=== PATIENT | female | born 1950 ===

== ENCOUNTER 2019-02-05 16:50 | Inpatient (IN) | payer OTHER ==
[2019-02-05] MEDS ORDERED: MORPHINE 4 MG/ML SYR ONE (18:03)
[2019-02-05] MEDS ORDERED: ONDANSETRON 4 MG/2 ML VIAL ONE (18:03)
--- NOTE | 2019-02-05 18:14 | EDPHYS ---
Physician Documentation [facility] Name: Virginia Savage Age: 68 yrs Sex: Female : 1950 Arrival Date: 02/05/2019 Time: 16:58 Bed 14 Private MD: ED Physician Jackson Lainez HPI: 02/05 17:56 This 68 yrs old Unknown Female presents to ER via EMS with complaints of Wound Check. ps1 17:56 patient presenting with dry gangrene to left foot with multiple toes affected and cold ps1 foot without pulses. Hx of PVD and was treated for gangrene with vancomycin recently. 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 Not systemic. No fever, chills. Pain in lower foot but now loss of sensation. . Historical: - Allergies: 16:58 Codeine; aa5 16:58 metformin; aa5 16:58 Sulfa (Sulfonamide Antibiotics); aa5 16:58 PENICILLINS; aa5 16:58 SHELLFISH; aa5 - Home Meds: 17:31 Arginaid oral oral [Active]; atorvastatin 80 mg oral tab once daily [Active]; aa5 fluticasone 50mcg nasal [Active]; ipratropium-albuterol inhalation Inhl [Active]; loperamide 2 mg oral tab 2 tabs for Diarrhea [Active]; Megace 400 mg/10 mL (40 mg/mL) Oral susp 10 mL BID [Active]; metoprolol tartrate 25 mg Oral tab 2 times per day [Active]; naproxen 250 mg Oral tab 1 tab 2 times per day [Active]; Norvasc 10 mg Oral tab 1 tab once daily [Active]; pantoprazole 40 mg oral TbEC once daily [Active]; potassium chloride 20 mEq oral TbER 2 tab once daily [Active]; Questran 4 gram Oral powd 3 times a day [Active]; Remeron 30 mg Oral tab once daily [Active]; tamsulosin 0.4 mg oral cp24 1 cap once daily [Active]; tramadol 50 mg Oral tab every 6 hours [Active]; vancomycin 250 mg oral cap every 6 hours [Active]; venlafaxine 75 mg oral cp24 1 cap BID [Active]; Zinc Sulfate Oral [Active]; - PMHx: 17:18 CVA; Hyperlipidemia; Diabetes Type 2; COPD; PVD; Depression; Retention of urine with aa5 davila placement; - Immunization history:: Flu vaccine is up to date. - Social history:: Smoking status: Patient uses tobacco products, 8 cigarettes a day . - Ebola Screening: : No symptoms or risks identified at this time. ROS: 17:56 Constitutional: Negative for fever, chills, and weight loss, Eyes: Negative for injury, ps1 pain, redness, and discharge, Cardiovascular: Negative for chest pain, palpitations, and edema, Respiratory: Negative for shortness of breath, cough, wheezing, and pleuritic chest pain, Abdomen/GI: Negative for abdominal pain, nausea, vomiting, diarrhea, and constipation. 17:56 MS/extremity: Positive for pain, paresthesias, tingling, of the left first toe, left second toe, left third toe, left fourth toe, Left first toenail, Left second toenail and Left third toenail, pulseless and cold. Exam: 17:56 Constitutional: This is a well developed, well nourished patient who is awake, alert, ps1 and in no acute distress. Head/Face: Normocephalic, atraumatic. Eyes: Pupils equal round and reactive to light, extra-ocular motions intact. Lids and lashes normal. Conjunctiva and sclera are non-icteric and not injected. Chest/axilla: Normal chest wall appearance and motion. Nontender with no deformity. No lesions are appreciated. Cardiovascular: Regular rate and rhythm. No gallops, murmurs, or rubs. Normal PMI, no JVD. No pulse deficits. Respiratory: Lungs have equal breath sounds bilaterally, clear to auscultation and percussion. No rales, rhonchi or wheezes noted. No increased work of breathing, no retractions or nasal flaring. Abdomen/GI: Soft, non-tender, with normal bowel sounds. No distension or tympany. No guarding or rebound. No evidence of tenderness throughout. 17:56 Musculoskeletal/extremity: Extremities: right BKA. left foot has no pulses distally and no cap refill. Dry gangrene on distal aspects of toes with medial toes worse than lateral. Discoloration noted to the distal aspect of the foot extending proximally approximately 4cm. . Vital Signs: 16:59 BP 109 / 66; Pulse 93; Resp 18 S; Temp 98.2(O); Pulse Ox 100% on R/A; Pain 10/10; aa5 18:00 BP 134 / 73; Pulse 92; Resp 16 S; Pulse Ox 100% on R/A; aa5 19:10 BP 128 / 67; Pulse 109; Resp 20; Temp 97.9(O); Pulse Ox 99% on 2 lpm NC; Pain 10/10; lp1 20:00 BP 140 / 67; Pulse 118; Resp 19; Pulse Ox 100% on 2 lpm NC; lp1 21:30 BP 134 / 70; Pulse 115; Resp 20; Pulse Ox 99% on 2 lpm NC; lp1 MDM: 17:43 Patient medically screened. ps1 17:56 Data reviewed: vital signs, nurses notes, and as a result, I will admit patient. ps1 Counseling: I had a detailed discussion with the patient and/or guardian regarding: the historical points, exam findings, and any diagnostic results supporting the discharge/admit diagnosis, the presence of at least one elevated blood pressure reading (>120/80) during this emergency department visit. ED course: patient has a cold foot with dry gangrene and lack of pulses. Patient requested amputation. Discussed with Jere who agrees to perform surgery. Will admit to hospitalist. . 18:38 ED course: Spoke with Dr. Taylor and would have Dr. Kenny take patient for admission. ps1 Transfer of care. 1756. 02/05 17:44 Order name: CBC with Diff [facility] 02/05 18:35 Interpretation: Abnormal: WBC 20.0; HGB 9.4; PEARL% 78.3. [facility] 02/05 17:44 Order name: CMP; Complete Time: 18:30 ps1 02/05 18:35 Interpretation: Abnormal: NA 135; CRE 1.51; GFR 34; BUN 25. [facility] 02/05 17:44 Order name: Type And Screen [facility] 02/05 18:20 Order name: Urine Microscopic Only; Complete Time: 18:44 ss 02/05 18:20 Order name: Urine Culture 02/05 18:30 Order name: Urine Dipstick--Ancillary (enter results); Complete Time: 18:44 bd 02/05 17:44 Order name: Urine Dipstick-Ancillary (obtain specimen); Complete Time: 18:50 ps1 02/05 17:44 Order name: EKG - Nurse/Tech; Complete Time: 18:36 ps1 02/05 19:18 Order name: ABO/RH no charge EDMO 02/05 19:51 Order name: CBC Smear Scan EDMS EC:18 Rate is 93 beats/min. Rhythm is regular. QRS [place] is Normal. SD interval is normal. QRS ps1 interval is normal. QT interval is normal. Q waves are Old in leads V2, V3. T waves are Normal. No ST changes noted. Clinical impression: Anterior MS - age indeterminate. Administered Medications: 18:12 Drug: morphine 4 mg Route: IVP; Site: right forearm; aa5 18:30 Follow up: Response: No adverse reaction aa5 18:12 Drug: Zofran 4 mg Route: IVP; Site: right forearm; aa5 18:30 Follow up: Response: No adverse reaction aa5 20:15 Drug: Dilaudid 1 mg Route: IVP; Site: right forearm; lp1 21:00 Follow up: Response: No adverse reaction; No change in condition lp1 Disposition: 02/05/19 18:14 Hospitalization ordered by Felicita Patel for Inpatient Admission. Preliminary diagnosis are Acute ischemic foot (left), dry gangrene, peripheral vascular disease. - Bed requested for Telemetry/MedSurg (Inpatient). - Status is Inpatient Admission. lp1 - Condition is Stable. - Problem is an ongoing problem. - Symptoms have worsened. UTI on Admission? No Signatures: Dispatcher [employer] [facility] Jenn Knutson RN RN aa5 Ana Edward RN RN lp1 Delroy Carmichael RN RN ja1 Jackson Lainez MD MD ps1 Corrections: (The following items were deleted from the chart) 20:09 18:14 Hospitalization Ordered by Felicita Patel MD for Inpatient Admission. Preliminary [facility] diagnosis is Acute ischemic foot (left); dry gangrene; peripheral vascular disease. Bed requested for Telemetry/MedSurg (Inpatient). Status is Inpatient Admission. Condition is Stable. Problem is an ongoing problem. Symptoms have worsened. UTI on Admission? No. ps1 22:15 20:09 02/05/2019 18:14 Hospitalization Ordered by Felicita Patel MD for Inpatient lp1 Admission. Preliminary diagnosis is Acute ischemic foot (left); dry gangrene; peripheral vascular disease. Bed requested for Telemetry/MedSurg (Inpatient). Status is Inpatient Admission. Condition is Stable. Problem is an ongoing problem. Symptoms have worsened. UTI on Admission? No. ja1
--- NOTE | 2019-02-05 18:14 | ER ---
Nurse's Notes [facility] Name: Virginia Savage Age: 68 yrs Sex: Female : 1950 Arrival Date: 02/05/2019 Time: 16:58 Bed 14 Private MD: Diagnosis: Acute ischemic foot (left);dry gangrene;peripheral vascular disease Presentation: 02/05 16:58 Risk Assessment: Do you want to hurt yourself or someone else? Patient reports no aa5 desire to harm self or others. Care prior to arrival: None. 16:58 Presenting complaint: EMS states: sent here for wound check to left foot. Unable to aa5 palpate pulse to left foot and unable auscultate via Doppler. Left foot cool to the touch. Transition of care: patient was not received from another setting of care. Onset of symptoms was February 05, 2019. Initial Sepsis Screen: Does the patient meet any 2 criteria? No. Patient's initial sepsis screen is negative. Does the patient have a suspected source of infection? No. Patient's initial sepsis screen is negative. 16:58 Acuity: SVEN 2 aa5 16:58 Method Of Arrival: EMS: [facility] aa5 Historical: - Allergies: 16:58 Codeine; aa5 16:58 metformin; aa5 16:58 Sulfa (Sulfonamide Antibiotics); aa5 16:58 PENICILLINS; aa5 16:58 SHELLFISH; aa5 - Home Meds: 17:31 Arginaid oral oral [Active]; atorvastatin 80 mg oral tab once daily [Active]; aa5 fluticasone 50mcg nasal [Active]; ipratropium-albuterol inhalation Inhl [Active]; loperamide 2 mg oral tab 2 tabs for Diarrhea [Active]; Megace 400 mg/10 mL (40 mg/mL) Oral susp 10 mL BID [Active]; metoprolol tartrate 25 mg Oral tab 2 times per day [Active]; naproxen 250 mg Oral tab 1 tab 2 times per day [Active]; Norvasc 10 mg Oral tab 1 tab once daily [Active]; pantoprazole 40 mg oral TbEC once daily [Active]; potassium chloride 20 mEq oral TbER 2 tab once daily [Active]; Questran 4 gram Oral powd 3 times a day [Active]; Remeron 30 mg Oral tab once daily [Active]; tamsulosin 0.4 mg oral cp24 1 cap once daily [Active]; tramadol 50 mg Oral tab every 6 hours [Active]; vancomycin 250 mg oral cap every 6 hours [Active]; venlafaxine 75 mg oral cp24 1 cap BID [Active]; Zinc Sulfate Oral [Active]; - PMHx: 17:18 CVA; Hyperlipidemia; Diabetes Type 2; COPD; PVD; Depression; Retention of urine with aa5 davila placement; - Immunization history:: Flu vaccine is up to date. - Social history:: Smoking status: Patient uses tobacco products, 8 cigarettes a day . - Ebola Screening: : No symptoms or risks identified at this time. Screenin:15 Abuse screen: Denies threats or abuse. Nutritional screening: No deficits noted. aa5 Tuberculosis screening: No symptoms or risk factors identified. Fall Risk Secondary diagnosis (15 points) impaired mobility, IV access (20 points). Total Bauer Fall Scale indicates Low Risk Score (25-44 pts). Fall prevention measures have been instituted. Side Rails Up X 2 Placed close to Nursing Station. Assessment: 17:00 General: Appears uncomfortable, Behavior is calm, cooperative. Pain: Complains of pain aa5 in left calf and left foot Pain does not radiate. Pain currently is 10 out of 10 on a pain scale. Quality of pain is described as sharp, shooting, Is intermittent, Aggravated by increased activity, repositioning. Neuro: Level of Consciousness is awake, alert, obeys commands, Oriented to person, place, time, situation. Cardiovascular: Heart tones S1 S2 present Rhythm is regular. Respiratory: Airway is patent Respiratory effort is even, unlabored, Respiratory pattern is regular, symmetrical. GI: Abdomen is flat, non-distended, Bowel sounds present X 4 quads. Abd is soft and non tender X 4 quads. : Brief noted. EENT: No signs and/or symptoms were reported regarding the EENT system. Derm: Skin is pink, warm \T\ dry. Necrotic tissue noted to tip of left great toe, tip of 2nd,toe and tip of of 3rd toe. Left foot is cool to the touch and unable to palpate or auscultate pedal pulse. Musculoskeletal: R AKA noted. 17:45 Reassessment: Clean brief applied. Small soft brown stool noted. . aa5 18:15 Reassessment: Patient is alert, oriented x 3, equal unlabored respirations, skin aa5 warm/dry/pink. Pt appears comfortable after morphine administration. . 18:35 Reassessment: Left foot redressed with Kerlix, pt tolerated well. . aa5 18:35 Reassessment: Patient is alert, oriented x 3, equal unlabored respirations, skin aa5 warm/dry/pink. 19:15 Reassessment: Patient complaint of pain to left thigh, states 10/10 on pain scale; lp1 requesting to have brief change; aware of pending admission. 20:01 Reassessment: Hospitalist at bedside to assess patient; Verbal order for Dilaudid 1 mg lp1 IV at this time. 20:10 Reassessment: Dr. Oquendo at bedside. lp1 20:20 Reassessment: Attempted to give report at this time, nurse unable to take report. lp1 21:10 Reassessment: Attempted to call report, nurse not available. lp1 21:36 Reassessment: Patient states continued pain to left hip, no relief with medication lp1 administered. 21:50 Reassessment: Patient's brief changed at this time, small amount of stool, mucus like. lp1 Vital Signs: 16:59 BP 109 / 66; Pulse 93; Resp 18 S; Temp 98.2(O); Pulse Ox 100% on R/A; Pain 10/10; aa5 18:00 BP 134 / 73; Pulse 92; Resp 16 S; Pulse Ox 100% on R/A; aa5 19:10 BP 128 / 67; Pulse 109; Resp 20; Temp 97.9(O); Pulse Ox 99% on 2 lpm NC; Pain 10/10; lp1 20:00 BP 140 / 67; Pulse 118; Resp 19; Pulse Ox 100% on 2 lpm NC; lp1 21:30 BP 134 / 70; Pulse 115; Resp 20; Pulse Ox 99% on 2 lpm NC; lp1 ED Course: 16:58 Patient arrived in ED. aa5 16:58 Arm band placed on Patient placed in an exam room, on a stretcher. aa5 16:58 Patient has correct armband on for positive identification. Bed in low position. Call aa5 light in reach. Side rails up X2. Pulse ox on. NIBP on. 17:10 Triage completed. aa5 17:16 Jackson Lainez MD is Attending Physician. ps1 17:22 Jenn Knutson, RN is Primary Nurse. aa5 17:52 Initial lab(s) drawn, by nm, sent to lab. Inserted saline lock: 24 gauge in right aa5 forearm, using aseptic technique. Blood collected. 18:13 Felicita Patel MD is Hospitalizing Provider. ps1 18:35 EKG done, by ED staff, reviewed by Jackson Lainez MD. dh3 19:00 Report given to Ana Edward RN. aa5 19:22 No provider procedures requiring assistance completed. Patient admitted, IV remains in lp1 place. Administered Medications: 18:12 Drug: morphine 4 mg Route: IVP; Site: right forearm; aa5 18:30 Follow up: Response: No adverse reaction aa5 18:12 Drug: Zofran 4 mg Route: IVP; Site: right forearm; aa5 18:30 Follow up: Response: No adverse reaction aa5 20:15 Drug: Dilaudid 1 mg Route: IVP; Site: right forearm; lp1 21:00 Follow up: Response: No adverse reaction; No change in condition lp1 Outcome: 18:14 Decision to Hospitalize by Provider. ps1 19:22 Condition: stable lp1 19:22 Instructed on the need for admit. 21:41 Admitted to Tele accompanied by tech, via stretcher, room 416, with oxygen, with chart, lp1 Report called to VASQUEZ Romero 21:50 Patient left the ED. lp1 Signatures: Jenn Knutson RN RN 5 Ana Edward RN RN 1 Josselyn Bedolla [facility] Jackson Lainez MD MD ps1 Corrections: (The following items were deleted from the chart) 20:01 19:10 BP 128 / 67; Pulse 109bpm; Resp 20bpm; Pulse Ox 99% 2 lpm Nasal Cannula; Pain lp1 10/10; lp1 22:15 22:15 Patient left the ED. lp1 lp1
[2019-02-05 18:16] LABS: Absolute Lymphocytes (CBC) 3.2 K/uL (0.7-4.9); Basophils % 0.5 % (0-1.3); Hematocrit 28.6 % (36.0-45.0); Lymphocytes % 15.8 % (15.3-44.8); MPV 6.9 fL (7.6-11.3); RBC Red Blood Cell Count 3.49 M/uL (3.86-4.86)
[2019-02-05 18:26] LABS: Albumin 2.5 g/dL (3.4-5.0); Bilirubin Total 0.4 mg/dL (0.2-1.0); Potassium 4.5 mmol/L (3.5-5.1); Protein, Total 6.8 g/dL (6.4-8.2)
[2019-02-05 18:39] LABS: Urine Bacteria >50 /HPF (<20); Urine Culture Reflex Order NOT NEEDED; Urine Mucus 2+ /HPF (NONE SEEN)
[2019-02-05 18:39] LABS: Urine Blood 1+ (NEG); Urine Glucose NEGATIVE (NEG); Urine Protein 1+ (NEG); Urine pH 5.5 (5.0-7.0)
[2019-02-05 19:50] LABS: Platelet Estimate INCR; Urine White Blood Cell Casts OK
[2019-02-05 19:51] LABS: Anisocytosis 1+; Blood Morphology Comment NOTED (NOT SEEN); Poikilocytosis 2+
[2019-02-05] MEDS ORDERED: HYDROMORPHONE HCL 1 MG/ML INJ ONE (20:06)
--- NOTE | 2019-02-05 20:43 | P.PN ---
Date of Service: 02/05/19 pt with dm , pvd , right bka , adm for left foot toe gangrene , hx of acute diarrhea started on vancoc , pending c diff . will start ivf , abx , consult surgery for possible amputation , stool for c diff now
[2019-02-05] MEDS ORDERED: NA CHLORIDE 0.9% 1,000 ML IV SCH (21:00)
[2019-02-05] MEDS ORDERED: ALBUTEROL 2.5 MG/3 ML NEB SOL NEB PRN (21:09)
[2019-02-05] MEDS ORDERED: ACETAMINOPHEN 500 MG TAB PO PRN (22:22)
[2019-02-05] MEDS ORDERED: ACETAMINOPHEN 325 MG TABLET PO PRN (22:22)
[2019-02-05] MEDS ORDERED: MORPHINE 2 MG/ML SYR IV PRN (22:22)
[2019-02-05] MEDS ORDERED: TRAMADOL HCL 50 MG TAB PO PRN (22:22)
[2019-02-05] MEDS ORDERED: ONDANSETRON 4 MG/2 ML VIAL IV PRN (22:22)
[2019-02-05] MEDS ORDERED: HYDROCODONE/APAP 7.5/325 MG TAB PO PRN (22:22)
[2019-02-05] MEDS: INSULIN -REGULAR HUMAN 50 UNIT/0.5 ML ML SQ SCH (22:22)
[2019-02-05] MEDS ORDERED: VANCOMYCIN 750 MG in NA CHLORIDE 0.9% 150 ML IVPB SCH (23:00)
[2019-02-05] MEDS ORDERED: CEFEPIME 1 GM/VIAL IV SCH (23:00)
[2019-02-05] MEDS: SODIUM BICARB 325 MG TAB PO SCH (23:11)
[2019-02-05] MEDS: HYDROMORPHONE HCL 2 MG/ML inj IV PRN (23:12)
[2019-02-06] MEDS ORDERED: VANCOMYCIN 500 MG/VIAL ONE (00:11)
[2019-02-06] MEDS ORDERED: CEFEPIME 1 GM/100 ML BAG IV ONE (00:16)
[2019-02-06] MEDS ORDERED: NA CHLORIDE 0.9% 250 ML ONE (00:35)
[2019-02-06] MEDS: HEPARIN 5000 UNIT/ML 1 ML VIAL SQ SCH ×3 (00:55→18:33)
[2019-02-06] MEDS ORDERED: NAPROXEN 250 MG TAB PO PRN (01:48)
--- NOTE | 2019-02-06 04:29 | HP ---
Date of Admission: 02/05/2019 Presenting Complaint: Left foot pain. History Of Present Illness: Ms. Virginia Savage is a 68-year-old female with past medical hi story of hypertension; depression; dementia; COPD; diabetes mellitus with neuropathy, status post rig ht BKA 10 months ago; [facility] resident since the last 10 months, who developed gangrene with ___ on the left foot digits, especially the great toe and next 2 toes since the last 1 month, whi ch has been worsening despite daily dressing. She was transferred to the emergency room today for fu rther evaluation and management. She has not been started on any antibiotics. She admits to persist ent pain. She rates pain is about 8/10 now. Pain is more in the left upper thigh. She denies pain in the foot area. She admits to decrease p.o. intake despite have megace. She admitted for diarrhea with p.o. intake worsening since the last 1 week. She had stool for C diff since 2 days ago and emp irically started on vancomycin yesterday. She denies any nausea or vomiting. Past Medical History: Significant for hypertension, hyperlipidemia, diabetes mellitus, peripheral ne uropathy, right BKA, peripheral vascular disease, history of memory issues, history of COPD, history of urine retention, on chronic indwelling Martinez. Family History: Noncontributory in this 68-year-old female. Social History: [facility] a [facility]. She admitted tobacco use. She smokes about 8 cigare ttes per day. She denies any alcohol or illicit drug use. She states her son has a power of attorne y and make decisions for her. Review of Systems: All systems reviewed x14 were negative except as mentioned above. Allergies: NO KNOWN DRUG ALLERGIES. Medications: Home medications were reviewed include: 1.Lipitor. 2.Megace. 3.Nebulizer. 4.Metoprolol 25 mg b.i.d. Full list pending reconciliation. Physical Examination: Current Vital Signs: Blood pressure of 116/76, pulse of 90 to 102, respiratory rate of 20, O2 satura tions of 95% on 2 L nasal cannula. General: Middle age female, appear older than stated age, in mild pain distress, cachectic with sign ificant muscle wasting. HEENT: Head is atraumatic, normocephalic. Pupils equal and reactive to light. Moist oral mucosa. Neck: No JVD. No carotid bruit. On 2 L nasal cannula. Respiratory: Good air entry bilaterally. There is no crepitation. Cardiovascular: S1, S2. Rate and rhythm regular. Abdomen: Full, soft, nontender. Bowel sound is positive. Extremities: Right BKA. No stump edema. Left marked, wasted lower extremity muscles. e schar over the digits of the lateral 3 toes with marked excoriation extending to the distal end of th e left big toe. Neurologic: Patient is conversant. No neurological focal motor deficits . Laboratory Data: WBC 20,000, hemoglobin 9.4, hematocrit 28, platelets 169, neutrophils 78%, no bands . Sodium 135, potassium 4.5, bicarb 16, chloride 106, BUN 25, creatinine 1.5, glucose 94. Impression: 1.Left foot toe gangrene. 2.Chronic diarrhea, presumed Clostridium difficile. 3.Diabetes mellitus. 4.Weakness, likely due to decrease p.o. intake. 5.History of chronic obstructive pulmonary disease. 6.Acute renal failure. Plan: We will admit patient to inpatient status. We will manage the patient for the followin.Left foot gangrene. We will consult Surgery for possible toe amputations. Patient might need angie t given history of peripheral vascular disease and diabetic neuropathy. We will start patient on emp iric antibiotics with vancomycin and cefepime with do adequate pain medication with p.r.n. Dilaudid. We will start on IV fluid. 2.Acute renal failure, likely due to prerenal. We will start patient on gentle IV fluid. Monitor v ancomycin trough and adjust as needed. 3.Presumed C diff. We will start isolation protocol. Obtain stool for C diff. May need p.o. vanco mycin and flagyl. Continue IV vancomycin for now. 4.Hypertension. We continue lopressor q.12 as needed, IV hydralazine p.r.n. 5.Deep vein thrombosis prophylaxis. Subcutaneous heparin. 6.Advanced directive. Patient is DNR per [facility] record. Patient confirmed after discussion. Total time spent review of record, discussed with patient greater than 60 minutes. EO/MODL Voice ID: [id number]
--- NOTE | 2019-02-06 05:30 | EKG ---
Test Date: 2019-02-05 Test Time: 18:18:19 Food Service Cashier: LUCIAN MEASUREMENT RESULTS: Intervals: Rate: 93 MI: 120 QRSD: 70 QT: 392 QTc: 487 Sharon: P: 81 MI: 120 QRS: -24 T: 85 INTERPRETIVE STATEMENTS: Sinus rhythm with premature ventricular complexes or fusion complexes Anteroseptal infarct, age undetermined Abnormal ECG No previous ECG available for comparison Electronically Signed On 02-06-19 05:29:42 [employer]LECTION WORKER by Yonis Lee
[2019-02-06 06:09] LABS: Absolute Lymphocytes (CBC) 2.7 K/uL (0.7-4.9); Basophils % 0.4 % (0-1.3); Hematocrit 26.6 % (36.0-45.0); Lymphocytes % 10.7 % (15.3-44.8); MPV 7.1 fL (7.6-11.3); RBC Red Blood Cell Count 3.23 M/uL (3.86-4.86)
[2019-02-06 06:34] LABS: Magnesium 1.5 mg/dL (1.8-2.4); Potassium 4.2 mmol/L (3.5-5.1)
[2019-02-06] MEDS ORDERED: WATER FOR INJ,STERILE 1,000 ML with NA BICARB 8.4% 100 MEQ IV SCH ×2 (07:00)
[2019-02-06] MEDS: INSULIN -REGULAR HUMAN 50 UNIT/0.5 ML ML SQ SCH ×4 (07:30→21:00)
[2019-02-06] MEDS ORDERED: Magnesium Sulfate 2gm IVPB 2 G/50 ML BAG IV ONE ×2 (07:55→14:40)
[2019-02-06] MEDS: METOPROLOL TAR 25 MG TAB PO SCH ×2 (09:00→20:43)
[2019-02-06] MEDS ORDERED: VANCOMYCIN 1 GM in NA CHLORIDE 0.9% 500 ML IVPB SCH (09:00)
[2019-02-06] MEDS: VENLAFAXINE HCL 75 MG TABLET PO SCH ×2 (09:00→20:43)
[2019-02-06] MEDS: SODIUM BICARB 325 MG TAB PO SCH ×2 (09:00→20:47)
[2019-02-06] MEDS: FLUTICASONE 50MCG NASAL SPRAY NAS SCH (09:26)
[2019-02-06 11:44] LABS: Uric Acid 9.7 mg/dL (2.6-6.0)
[2019-02-06 11:49] LABS: CKMB Creatine Kinase MB 41.7 ng/mL (0.3-3.6)
[2019-02-06] MEDS ORDERED: NA CHLORIDE 0.9% 500 ML IV ONE (12:53)
[2019-02-06] MEDS: WATER FOR INJ,STERILE 1,000 ML with NA BICARB 8.4% 150 MEQ IV SCH ×2 (13:00)
[2019-02-06] MEDS ORDERED: Meropenem 500 MG in NA CHLORIDE 0.9% 100 ML IV SCH (13:15)
[2019-02-06 14:52] LABS: Urine Protein/Creatinine Ratio 2.14 ratio (<0.15)
[2019-02-06] MEDS: Meropenem 500 MG in NA CHLORIDE 0.9% 100 ML IV SCH ×2 (15:00→21:45)
[2019-02-06] MEDS ORDERED: NA CHLORIDE 0.9% 1,000 ML IV SCH (15:00)
[2019-02-06 15:15] LABS: Arterial Blood Carboxyhemoglob 1.3 % (0-1.5); Blood Gas Oxyhemoglobin 95.8 % (94-97); Blood O2 Saturation 97.6 % (92-98.5)
[2019-02-06] MEDS: HYDROMORPHONE HCL 2 MG/ML inj IV PRN ×2 (16:24→20:47)
--- NOTE | 2019-02-06 16:52 | RAD REPORT ---
EXAM DESCRIPTION: US - Renal Ultrasound-Complete - 02/06/2019 3:50 pm CLINICAL HISTORY: Renal failure COMPARISON: None. FINDINGS: The right kidney measures 7.6 x 3.7 x 2.3 cm.. The left kidney measures 7.1 x 3.4 x 3.1 c m. Cortical thickness is normal. Echogenicity is increased which could be body habitus affect or medi star renal disease. No hydronephrosis or suspicious renal mass. Bladder is contracted around a Martinez catheter. IMPRESSION: Medical renal disease evident but no hydronephrosis or suspicious mass. No other significant findings.
[2019-02-06] MEDS ORDERED: PIPER/TAZO/NS 2.25gm 2.25 GM/50 ML BAG IVPB SCH (17:00)
--- NOTE | 2019-02-06 17:02 | P.CNS ---
Date of Consult: 02/06/19 PC: I was asked to see well as in regards to some gangrene of her toes on her left foot. HPC: Patient is a skilled nursing. Presented to the emergency room complaining of pain. Her toes and on black over the last few days. PMH: History of stroke, CVA, peripheral vascular disease PSHx: Previous right AKA SOC: Allergic to codeine, penicillin, sulfa SYS REVIEW: New skilled nursing, states that she has been having dimensions pain in her left leg. This pain is up in her thigh. Denies any urinary complaints, has been losing weight and she does not have much of an appetite O/E awake alert vitals were stable HEENT: Within normal limits Chest: Chest movement equal bilateral ABD: Soft LOCO: Murray of her extremities her left leg is cool to the tied to. I cannot palpable pain any distal pulses. She has dry gangrene of her 1st 2nd and 3rd toe IMPRESSION: I had min formed that this patient had gangrene ever toes, and may require amputation. However when I see her today she has minimal blood flow to that left leg. I fear pending limb loss. PLAN: Patient had been on the floor, now in ICU due to persistently high lactate levels. Would recommend transfer to a higher level of care for vascular consultation.
--- NOTE | 2019-02-06 17:56 | PN ---
Date of Progress Note: 02/06/2019 Subjective: Patient was seen and examined. Chart reviewed and case discussed with RN and Dr. Oquendo, as well as Dr. Griffith. Patient appears ill, not really complaining of any pain, however, did mention pain in her thigh to the surgeon. Patient appears older than stated age and no family members are present at the bedside. Code Status: DNR. Medications: List reviewed. Physical Examination: Vital Signs: Temperature 97.3, heart rate 114, blood pressure 144/85, respirations 18, O2 100% on 2 L via nasal cannula. General: Awake, alert, oriented x3. Some mild distress. Elderly female, appears older than stated age. Frail, cachectic. BMI 14.3. CV: S1, S2. Sinus tachycardia. Peripheral pulses weak on the left lower extremity. Respiratory: Moving air well bilaterally. No wheezing or stridor. Gastrointestinal: Abdomen is soft, nontender, nondistended. Positive bowel sounds. Extremities: No clubbing, cyanosis, or edema on the left lower extremity. Musculoskeletal: Right AKA. Skin: Patient has gangrene of the left first, second, third toe with dry gangrene. No foul smelling odor, cool to touch. Neurologic: Nonfocal. Laboratory Data: Sodium 136, potassium 4.2, chloride 107, CO2 of 11, BUN 23, creatinine 1.28, glucose 113, lactate 2.2. Repeat lactate is 1. Repeat lactate today is 1.2. Uric acid level is 9.7, calcium 7.9, magnesium 1.5. CK level is 2286, CK-MB 41.7. ABG is pending. WBC 25.4, H and H 8.5, 26.6, platelets 616, neutrophils 85%. Urine culture growing out gram-negative rods. Blood culture is pending. Assessment: A 68-year-old female with: 1. Left foot dry gangrene. Appreciate Dr. Oquendo's input. We will adjust IV antibiotics. Add meropenem. Patient is allergic to penicillin for gram- negative coverage. Patient will likely need amputation and her blood circulation is very poor as peripheral vascular disease likely need BKA or AKA. 2. Chronic diarrhea. Patient has Clostridium difficile, was not treatment at the nursing facility. We will continue treatment for now. 3. Acute cystitis with hematuria. We will continue with IV antibiotics. Cultures are growing out gram-negative rods. 4. Hypomagnesemia. We will replace and monitor. 5. Failure to thrive. BMI is 14.3. Patient will need dietary consultation. 6. Acute rhabdomyolysis, nontraumatic. CK level is 2200, likely due to her gangrene. 7. Acidosis. CO2 level is low. We will give bolus and then start on bicarb drip. 8. Acute kidney injury, likely due to dehydration and acidosis, improved. We will continue with IV fluids. 9. Essential hypertension. Continue with home medications. 10. Deep venous thrombosis prophylaxis with heparin. 11. Mixed hyperlipidemia. We will continue statin. 12. Diabetes mellitus type 2, non-insulin requiring. We will continue with sliding scale insulin. Monitor blood glucose levels. 13. Chronic obstructive pulmonary disease, chronic bronchitis. Continue with breathing treatments currently on room air. 14. PVD. Surgery checking arterial doppler to assess for safe level of amputation Plan: Transfer to ICU. /AUDIE Voice ID: [id number] Report ID: [id number] [facility]
[2019-02-06] MEDS ORDERED: MAGNESIUM SULFATE 1 gm IVPB 1 GM/100 ML BAG IV ONE (18:00)
--- NOTE | 2019-02-06 18:23 | CON ---
Date of Consultation: 02/06/2019 Reason For Consultation: Elevated BUN and creatinine, acidosis. History Of Present Illness: This is an unfortunate 68-year-old female with significant past medical history of hypertension, depression, dementia, COPD, diabetes complicated with neuropathy, peripheral vascular disease status post right below-knee amputation. Patient came from the [facility] of ischemic digit on the left toes. Patient found elevated BUN, creatinine with acidosis. For angie t reason, we have been consulted. Patient apparently had also C difficile 2 days ago, was treated em pirically with vancomycin. No fever. No chills. Reviewing the record for the patient, the patient was in the ER a few days ago on the , creatinin e 1.5 at that time, she had mild acidosis with bicarb of 20. Past Medical History: Includes: 1.COPD. 2.Dementia. 3.Diabetes complicated with neuropathy. 4.Peripheral vascular disease status post right below-knee amputation. 5.Depression. Past Surgical History: Includes right below-knee amputation. Social History: Lives in detention. Smoker. Denied alcohol. Past Surgical History: Includes right below-knee amputation. Home Medications: In the detention, Lipitor, Megace, nebulizer, metoprolol. Allergies: NO KNOWN DRUGS ALLERGY. Review of Systems: Head and Neck: No red eye. No ear pain. GI: Decreased intake. Has diarrhea. : No polyuria, no dysuria, no hematuria. Nursing Staffing Coordinator: No vaginal discharge. Respiratory: No shortness of breath. Cardiovascular: No chest pain. Endocrine: No polydipsia. Skin: No rash. Neuro: Has neuropathy. Musculoskeletal: Has leg pain. Physical Examination: Vital Signs: When I saw the patient, blood pressure 139/82, pulse of 110, afebrile. The patient had urine output of 250. Chest: Clear to auscultation. Heart: S1, S2. Systolic murmur. Abdomen: Soft, nontender. Extremities: Right below-knee amputation. Left, cold leg with gangrene on multiple toes. Laboratory Data: Sodium 136, potassium 4.2, bicarb 11, chloride 107, BUN 23, creatinine 1.2, GFR of 41, calcium 7.9, magnesium 1.5. CK-MB 41, CK 2200. Urinalysis, specific gravity of 1.020, rbc of 20 , wbc of 50, ketones positive. ABG still pending. Assessment And Plan: 1.Acute kidney injury on chronic kidney disease, multifactorial secondary to toxic acute tubular nec rosis/prerenal superimposed with rhabdomyolysis on chronic kidney disease secondary to renal vascular disease. I am going to go ahead and aggressively hydrate the patient. We will bolus the patient wi th 500 and start the patient on sodium bicarb and we will monitor closely. 2.Hypertension. Keep holding all angiotensin-converting enzyme inhibitor or angiotensin receptor bl ocker. Hold diuresis. 3.Urinary tract infection. Start the patient on meropenem. We will send for culture. 4.Ischemic leg. We will follow up with surgeon. The patient was started on heparin. 5.Diarrhea. The patient already started on meropenem and vancomycin for the ischemic leg. It will cover. We will start aggressive hydration. 6.High anion gap metabolic acidosis secondary to renal failure, mostly lactic acid secondary to poor ischemia. I am going to start sodium bicarb drip and we will monitor. 7.Hypomagnesemia. We will supplement. Patient overall poor prognosis. I discussed the patient wit staff. Discussed the case with Dr. Hays. He agrees on the plan. We will follow up. 8.Rhabdomyolysis secondary to ischemia with acute kidney injury. Patient has been started on sodium bicarb. We will start aggressive hydration and we will follow up. SARA/AUDIE Voice ID: [id number] Report ID: [id number]
--- NOTE | 2019-02-06 18:34 | RAD REPORT ---
EXAM DESCRIPTION: US - Lower Extremity Arterial Bilat - 02/06/2019 4:10 pm CLINICAL HISTORY: Cold left lower extremity, possible occlusion, abnormal toes, pending amputation COMPARISON: None. TECHNIQUE: Waveforms were obtained along the length of each lower extremity. Visual inspection of th e lower extremity arterial tree performed. FINDINGS: Left common femoral artery shows a significantly dampened monophasic waveform pattern. Lef t superficial femoral artery shows a very dampened irregular waveform pattern. Little identifiable fl ow seen in the left popliteal vein. Posterior tibial artery flow is extremely dampened with monophasi c activity. Right common femoral artery velocity is significantly dampened as well biphasic to monophasic. Patien t is an above knee amputee. Right superficial femoral artery not be obtained. Dense arterial tree calcifications are present. Exam is limited. Patient had difficulty cooperating with the examination. IMPRESSION: Left lower extremity shows very poor blood flow. There is substantially dampened wavefor ms and and velocity in the common femoral, superficial femoral and popliteal arteries. Minimal flow in the left posterior tibial artery. Substantially dampened waveform present in the right common femoral artery with the right superficial femoral artery not visualized in this above knee amputee.
--- NOTE | 2019-02-06 20:38 | CON ---
History Of Present Illness: This is a 68-year-old intermediate resident with significant history of peripheral arterial disease and right AKA, coming in with left foot gangrenous changes to the toes and painful leg and severely compromised circulation to the left leg. Patient denies any other problems at this time. Past Medical History: Hyperlipidemia; diabetes mellitus; peripheral neuropathy ; right AKA; peripheral arterial disease; protein-calorie malnutrition; memory issues; COPD; urine retention, on chronic indwelling Martinez catheter. Family History: Noncontributory. Medications: Meropenem and vancomycin. See MAR for other medications. Allergies: CODEINE, PENICILLIN, AND SULFA. Review of Systems: 10-point review was performed. Physical Examination: General: This is a 68-year-old female, lying in bed, not in any acute cardiopulmonary distress. Vital Signs: Temperature 97.3, pulse 110, respirations 18, blood pressure 139/ 82. HEENT: Unremarkable. Neck: Supple. Lungs: Basal crackles. Heart: S1, S2. Regular. Abdomen: Soft, nontender. Bowel sounds present. Extremities: Left leg with decrease pulses and moulted skin changes, also gangrenous changes to the distal toes on left foot. Right AKA scar tissue noted. Laboratory Data: WBC 25,000, hemoglobin 8.5, platelets are 616. Chemistry shows sodium 136, potassium 4.2, chloride 107, bicarb 11, BUN 23, creatinine 1.28, glucose 123. Blood cultures are pending. Urine cultures are growing more than 100,000 gram-negative rods. Assessment And Plan: Left foot gangrenous changes with severe peripheral arterial disease. Patient definitely needs revascularization versus above-knee amputation. Patient to continue empiric antibiotic, meropenem and vancomycin. Patient is also growing gram-negative rods in her urine, which is most likely secondary to either E coli or pseudomonas, which should be covered with meropenem. Leukocytosis secondary to inflammatory process. We will continue empiric treatment and consider transferring patient to long-term acute care or acute care hospital for revascularization and treatment of the wounds. Apply Betadine to the gangrenous site and keep monitor for signs of infection. Thank you Dr. Hays for consult. NF/MODL Voice ID: [id number] Report ID: [id number] [facility]
[2019-02-06] MEDS ORDERED: MIRTAZAPINE 15 MG TAB PO SCH (21:00)
[2019-02-06] MEDS ORDERED: ATORVASTATIN 80 MG TAB PO SCH (21:00)
[2019-02-07] MEDS: HEPARIN 5000 UNIT/ML 1 ML VIAL SQ SCH ×2 (01:41→08:55)
[2019-02-07] MEDS: HYDROMORPHONE HCL 2 MG/ML inj IV PRN ×2 (01:43→06:17)
[2019-02-07 05:01] LABS: Absolute Lymphocytes (CBC) 2.9 K/uL (0.7-4.9); Basophils % 0.3 % (0-1.3); Hematocrit 25.9 % (36.0-45.0); MPV 7.5 fL (7.6-11.3); RBC Red Blood Cell Count 3.18 M/uL (3.86-4.86)
[2019-02-07 05:36] LABS: Magnesium 2.5 mg/dL (1.8-2.4); Potassium 3.5 mmol/L (3.5-5.1)
[2019-02-07] MEDS: WATER FOR INJ,STERILE 1,000 ML with NA BICARB 8.4% 150 MEQ IV SCH ×2 (06:11)
[2019-02-07 06:26] VITALS: BMI 14.1
[2019-02-07] MEDS: INSULIN -REGULAR HUMAN 50 UNIT/0.5 ML ML SQ SCH (07:30)
[2019-02-07 08:24] VITALS: O2SAT 96
[2019-02-07] MEDS: Meropenem 500 MG in NA CHLORIDE 0.9% 100 ML IV SCH (08:30)
[2019-02-07 08:31] VITALS: BP 133/66
[2019-02-07] MEDS: METOPROLOL TAR 25 MG TAB PO SCH (08:31)
[2019-02-07] MEDS: FLUTICASONE 50MCG NASAL SPRAY NAS SCH (08:54)
[2019-02-07] MEDS: VENLAFAXINE HCL 75 MG TABLET PO SCH (08:54)
[2019-02-07] MEDS: SODIUM BICARB 325 MG TAB PO SCH (08:56)
[2019-02-07] MEDS ORDERED: MEGESTROL 400 MG/10 ML UCUP PO SCH (09:00)
[2019-02-07] MEDS ORDERED: PANTOPRAZOLE 40MG TABLET PO SCH (09:00)
[2019-02-07 09:59] LABS: Blood Morphology Comment NOT SEEN (NOT SEEN); Platelet Estimate INCR
[2019-02-07 10:17] VITALS: TEMP 99.1
--- NOTE | 2019-02-07 18:57 | DS ---
Date of Discharge: 02/07/2019 Consultants: Dr. Oquendo, General Surgery. Dr. Liz with Infectious Disease. Dr. Griffith with N ephrology. Admitting Diagnoses: 1.Left foot toe gangrene. 2.Severe peripheral vascular disease. 3.Chronic diarrhea, presumed Clostridium difficile. 4.Diabetes mellitus type 2, [id number]-hnptfwblm with diabetic neuropathy. 5.Generalized weakness. 6.History of chronic obstructive pulmonary disease. 7.Acute kidney injury. Discharge Diagnoses: 1.Left foot dry gangrene. 2.Severe peripheral vascular disease with ischemia. 3.Chronic diarrhea. Patient has Clostridium difficile, on oral vancomycin. 4.Acute cystitis with hematuria secondary to Escherichia coli. 5.Hypomagnesemia, replaced. 6.Failure to thrive. 7.Acute rhabdomyolysis, nontraumatic secondary to ischemic muscles in the left lower extremity. 8.Acidosis. 9.Acute kidney injury, improved. 10.Essential hypertension, stable. 11.Mixed hyperlipidemia, on statin. 12.Diabetes mellitus type 2, uoi-jusbmlb-isrsckwnz with neuropathy. 13.Chronic obstructive pulmonary disease, chronic bronchitis. Hospital Course: Patient is a 68-year-old female, resident of nursing facility with past medical his tory of hypertension, depression, COPD, diabetes, neuropathy, status post right AKA, comes in with ga gene of the left foot digits, for the past month worsening. She has a cold extremity with possible limb ischemia. Patient was found to have acute kidney injury, was acidotic, lactate of 2.2, had lvi ctrolyte abnormalities, which were corrected. Patient was started on IV fluids and bicarb drip. Gen eral Surgery was consulted. Due to her significant peripheral vascular disease, patient was not a ca ndidate for amputation due to fear of limb loss. Patient will likely need revascularization prior to any sort of amputation. Doppler sonogram was done, showed left lower extremity shows very poor bloo d flow substantially dampened waveforms and velocity in the common femoral, superficial femoral, and popliteal arteries. Minimum flow in the left posterior tibial artery, substantially dampened wavefor m present in the right common femoral artery with right superficial femoral artery not visualized and above-knee amputation. Patient was also seen by Infectious Disease and Nephrology. Kidney function did improve. However, her CK level was significantly elevated at 2200 and worsened. Patient's acid osis improved. Patient was initially referred to [facility] for transfer, however, there were no beds available. She had been excepted. Patient was then referred to [facility] for transfer due to worsening condition. The patient's white count had elevated to 32,000. She was also found t o have a UTI growing out E coli. Patient overall has a very poor prognosis, has multiple comorbiditi es including chronic diseases such as high blood pressure, diabetes and peripheral vascular disease o n top of her acute infections including gangrene and rhabdomyolysis from muscle breakdown due to limb ischemia as well as C difficile colitis and UTI. I do not expect this patient to survive this hospi talization. She is a do not resuscitate. Overall, very poor prognosis. Patient was transferred to [facility] in a serious condition. Physical Examination: General: Awake, alert, oriented x3. Ill-appearing female, frail, cachectic. BMI 14. CV: S1, S2. Respiratory: Moving air well bilaterally. Abdomen: Soft, nontender, nondistended. Positive bowel sounds. Extremities: Right AKA. Left lower extremity is cool to touch. Patient has gangrene of her left fi rst and second digit. Neuro: Patient has diabetic neuropathy. Otherwise nonfocal. Total time spent discharging the patient was 41 minutes. /AUDIE Voice ID: [id number] Report ID: [id number]
[2019-02-07] MEDS ORDERED: GLUCERNA SHAKE 237 ML CAN PO SCH (21:00)
== END 2019-02-07 09:10 | disposition short-term general hospital (02) | DRG 300 ==
LOC: ER 16:50 → ERHOLD 19:46 → 4TH 21:40 → 3RD-ICU 02-06 14:28
PROVIDERS: ADMIT Family Medicine; ATTEND Family Medicine
DX: E11.52 Type 2 diabetes mellitus with diabetic peripheral angiopathy with gangrene (principal); I96 Gangrene, not elsewhere classified; N30.00 Acute cystitis without hematuria; N17.9 Acute kidney failure, unspecified; E87.2 Acidosis; M62.82 Rhabdomyolysis; E44.0 Moderate protein-calorie malnutrition; A04.72 Enterocolitis due to Clostridium difficile, not specified as recurrent; Z68.1 Body mass index [BMI] 19.9 or less, adult; E11.65 Type 2 diabetes mellitus with hyperglycemia; B96.20 Unspecified Escherichia coli [E. coli] as the cause of diseases classified elsewhere; E11.40 Type 2 diabetes mellitus with diabetic neuropathy, unspecified; E83.42 Hypomagnesemia; R62.7 Adult failure to thrive; E78.2 Mixed hyperlipidemia; Z79.4 Long term (current) use of insulin; Z89.511 Acquired absence of right leg below knee
CPT/HCPCS: 36415; 76770; 80048; 80053; 81003; 81015; 82010; 82550; 82553; 82570; 82805; 82947; 83605; 83735; 84156; 84550; 85025; 86850; 86900; 86901; 87040; 87077; 87086; 87088; 87186; 87324; 87449; 93005; 93925; 96374; 96375; 99285; J0692; J1170; J1644; J2405; J3475; J7030; J7040

== ENCOUNTER 2019-03-07 09:41 | Inpatient (IN) | payer OTHER ==
--- NOTE | 2019-03-07 10:27 | RAD REPORT ---
EXAM DESCRIPTION: CT - Ct Stroke Brain Wo Cont - 03/07/2019 10:10 am CLINICAL HISTORY: RUE weakness Headache, drowsiness, CVA symptomology COMPARISON: No comparisons TECHNIQUE: All CT scans are performed using dose optimization technique as appropriate and may inclu de automated exposure control or mA/KV adjustment according to patient size. FINDINGS: No intracranial hemorrhage, hydrocephalus or extra-axial fluid collection.Several areas of focal diminished density are seen in both frontal lobes as well as the cerebellum. 2 cm area of dimi nished density in the right cerebellar hemisphere has the appearance of subacute infarct. Moderate br ain atrophy. The paranasal sinuses and mastoids are clear. The calvarium is intact. IMPRESSION: Areas of diminished density are seen, most notable in the right cerebellar hemisphere me asuring 2 cm, that have the appearance of subacute or chronic infarct. If there is continued clinica l concern for CVA, MR imaging of the brain would be recommended. The findings were discussed with Dr. baker in the ER on 03/07/2019 at 10:20 a.m. by telephone.
--- NOTE | 2019-03-07 10:29 | RAD REPORT ---
EXAM DESCRIPTION: RAD - Chest Single View - 03/07/2019 10:22 am CLINICAL HISTORY: weakness Chest pain. COMPARISON: No comparisons FINDINGS: Portable technique limits examination quality. Asymmetric bilateral pulmonary opacities are present which probably represent pulmonary edema or pneu monia. Rounded 2 cm mass in the right apex is noted likely representing a lung mass/malignancy. Heart is mildly enlarged in size. No displaced fractures.CT chest followup be obtained for further evaluat ion.
[2019-03-07] MEDS ORDERED: NA CHLORIDE 0.9% 1,000 ML ONE ×2 (10:51→13:34)
[2019-03-07] MEDS ORDERED: CLINDAMYCIN 900MG/D5W 900 MG/50 ML IVPB IV ONE (10:51)
[2019-03-07] MEDS ORDERED: CIPROFLOXACIN 400mg IV 400 MG/200 ML BAG IV ONE (10:51)
[2019-03-07 10:54] LABS: Absolute Lymphocytes (CBC) 0.4 K/uL (0.7-4.9); Hematocrit 34.1 % (36.0-45.0); Lymphocytes % 1.6 % (15.3-44.8); MPV 7.6 fL (7.6-11.3); RBC Red Blood Cell Count 4.03 M/uL (3.86-4.86)
[2019-03-07 10:58] LABS: Protime INR 1.2
[2019-03-07 11:07] LABS: Urine Blood 2+ (NEG); Urine Glucose NEGATIVE (NEG); Urine Protein 2+ (NEG)
[2019-03-07 11:10] LABS: Albumin 1.5 g/dL (3.4-5.0); Bilirubin Direct 0.3 mg/dL (0-0.2); Bilirubin Total 0.7 mg/dL (0.2-1.0); CKMB Creatine Kinase MB 4.4 ng/mL (0.3-3.6); Protein, Total 5.8 g/dL (6.4-8.2); Troponin (Emerg Dept Use Only) 0.04 ng/mL (0.0-0.045)
[2019-03-07 11:24] LABS: Potassium 2.6 mmol/L (3.5-5.1)
[2019-03-07 11:25] LABS: Blood Morphology Comment NOT SEEN (NOT SEEN); Platelet Estimate ADEQ
[2019-03-07 11:35] LABS: Calcium Oxalate Crystals- Ur FEW (NONE SEEN); Urine Bacteria LOADED /HPF (<20); Urine Culture Reflex Order REFLEXED
--- NOTE | 2019-03-07 11:35 | ER ---
Nurse's Notes [facility] Name: Virginia Savage Age: 68 yrs Sex: Female : 1950 Arrival Date: 03/07/2019 Time: 09:49 Bed 2 Private MD: Diagnosis: Sepsis, unspecified organism;Right upper extremity weakness;Hypokalemia Presentation: 03/07 09:49 Presenting complaint: EMS states: right arm weakness that was noticed by nursing staff aa5 today at 0845 and AMS. Pt is currently A\T\O x person and place. EMS reports 93% RA O2 sat and increased to 97% per 1L NC. Transition of care: patient was received from another setting of care (long-term care facility), [facility]. Onset of symptoms was March 07, 2019. Risk Assessment: Do you want to hurt yourself or someone else? Patient reports no desire to harm self or others. Initial Sepsis Screen: Does the patient meet any 2 criteria? RR > 20 per min. HR > 90 bpm. Yes Does the patient have a suspected source of infection? Yes: Other: recent left AKA If YES to both, name of provider notified: Ruiz Casanova MD. Care prior to arrival: Glucose check: 179 Oxygen administered. via nasal cannula. 09:49 Acuity: SVEN 2 aa5 09:49 Method Of Arrival: EMS: [facility] aa5 09:54 Note Spoke to intermediate nurse Radha and states last known normal was 03/06/[address] Casanova notified. Historical: - Allergies: 09:50 Codeine; aa5 09:50 metformin; aa5 09:50 PENICILLINS; aa5 09:50 SHELLFISH; aa5 09:50 Sulfa (Sulfonamide Antibiotics); aa5 - Home Meds: 10:05 amlodipine 10 mg tab 1 tab once daily [Active]; atorvastatin 80 mg Oral tab once daily aa5 [Active]; Arginaid oral oral [Active]; Calcium Carbonate Oral [Active]; Flonase Nasal [Active]; gabapentin 300 mg oral cap [Active]; ipratropium-albuterol inhalation Inhl [Active]; metoprolol tartrate 25 mg Oral tab 2 times per day [Active]; megestrol 400 mg/10 mL (40 mg/mL) Oral susp [Active]; pantoprazole 40 mg Oral TbEC once daily [Active]; potassium chloride 20 mEq Oral TbER 2 tab once daily [Active]; Remeron 15 mg oral tab 0.5 tab at bedtime [Active]; tamsulosin 0.4 mg Oral cp24 1 cap once daily [Active]; tramadol 50 mg Oral tab every 6 hours [Active]; venlafaxine 75 mg Oral cp24 1 cap BID [Active]; Vitamin C Oral [Active]; zinc [Active]; - PMHx: 09:50 COPD; CVA; Depression; Diabetes Type 2; Hyperlipidemia; PVD; Retention of urine with aa5 davila placement; - Immunization history:: Adult Immunizations unknown. - Ebola Screening: : No symptoms or risks identified at this time. - Social history:: Smoking status: Patient uses tobacco products, 8 cigarettes a day (from previous visit). Screenin:00 Abuse screen: No signs of abuse noted. aa5 10:25 Nutritional screening: Pt is slender . Tuberculosis screening: No symptoms or risk aa5 factors identified. Fall Risk Secondary diagnosis (15 points) vinayak AKA. IV access (20 points). Mental Status- Overestimates/Forgets Limitations (15 pts.). Total Bauer Fall Scale indicates High Risk Score (45 or more points). Fall prevention measures have been instituted. Side Rails Up X 2 Placed Close to Nursing Station. 11:30 Patient has been NPO before screening. The patient is alert, able to follow commands. aa5 The patient does not exhibit slurred or garbled speech The patient is not exhibiting difficulty speaking. The patient does not exhibit difficulty understanding words. The patient is able to swallow own secretions with no drooling or need for suction. Patient tolerated one teaspoon of water. No drooling, immediate coughing, gurgling, or clearing of the throat was noted. The patient tolerated 90mL of water. No drooling, immediate coughing, gurgling, or clearing of the throat was noted. The patient passed the bedside swallow screening. Oral medications may be given as ordered. Contact Physician for further diet orders. Provider notified of bedside swallow screening results: Ruiz Casanova MD. Assessment: 09:50 General: Appears comfortable, Behavior is calm, cooperative. Pain: Denies pain. Neuro: aa5 Level of Consciousness is awake, obeys commands, confused, Oriented to person, place, Crossbar Switch Adjuster are Pt able to can sealer with left hand but unable to can sealer with right hand. . Weakness in right arm(s) Speech is normal, Facial symmetry appears normal, Pupils are PERRL and 4mm in size. . Cardiovascular: Heart tones S1 S2 present Rhythm is sinus tachycardia with unifocal PVCs. Respiratory: Airway is patent Respiratory effort is even, unlabored, Respiratory pattern is tachypnea Breath sounds are diminished bilaterally. GI: Abdomen is flat, non-distended, Bowel sounds present X 4 quads. Abd is soft and non tender X 4 quads. : Davila in place to gravity drainage Urine is cloudy, Sediment noted in tubing. EENT: No signs and/or symptoms were reported regarding the EENT system. Derm: Skin is pink, warm \T\ dry. Bruising that is dark purple, on left femoral area Swelling noted to right arm. Musculoskeletal: Vinayak AKA. Dressing noted to left AKA, 30 damaso noted, black tissue noted that is approximately 2 in long and 1 in wide, serosanguineous drainage noted, edges are well approximated, mild redness noted along the incision. 10:00 Reassessment: Pt to CT via stretcher. . aa5 10:20 Reassessment: Pt back from CT.. aa5 10:20 Reassessment: X-ray at bedside . aa5 10:50 Reassessment: Urine collected and sent to lab. . aa5 10:50 Reassessment: Unable to obtain oral or axillary temperature. MD notified of decreased aa5 rectal temperature and VO for Carmen hugger blanket was obtained. . 10:50 Neuro: Level of Consciousness is awake, obeys commands, confused, Oriented to person, aa5 Crossbar Switch Adjuster are pt able to can sealer with left hand but unable to can sealer with right hand. . Weakness in right arm(s) Speech is normal, Facial symmetry appears normal. Respiratory: Airway is patent Respiratory effort is even, unlabored, Respiratory pattern is tachypnea. Derm: Skin is pink, warm \T\ dry. 11:00 Reassessment: Pt placed on Carmen hugger blanket. . aa5 11:40 Reassessment: Stage 3 pressure ulcer noted to sacral area and Stage 4 pressure ulcer aa5 noted to sacral area. Clean foam-pad placed to site with tape and old foam-pad removed. . 11:40 Reassessment: Pt cleaned of very small amount of mucous-like stool, clean brief aa5 applied. . 11:45 Reassessment: At bedside for Davila insertion, vaginal object was noted in vaginal aa5 canal, appears round and white in color, appears to be plastic. MD was notified and MD stated to contact prison to see if they can identify what it is. . 11:50 Reassessment: Pt now resting in bed with eyes closed. Equal and unlabored respirations. aa5 . 11:50 Cardiovascular: Rhythm is sinus tachycardia with unifocal PVCs. aa5 12:10 Reassessment: Contacted intermediate and spoke to Radha about vaginal object and states aa5 she does not know and is unable to identify what it is. . 12:30 Reassessment: Ct notified pt has IV for CT for PE. . aa5 13:00 Reassessment: Pt resting in bed with eyes closed, pt easy to awaken to verbal stimuli. .aa5 13:00 Cardiovascular: Rhythm is sinus tachycardia with unifocal PVCs. Respiratory: Airway is aa5 patent Respiratory effort is even, unlabored, Respiratory pattern is tachypnea. 13:00 Neuro: Level of Consciousness is awake, obeys commands, confused, Oriented to person, aa5 Pt unable to can sealer with right hand, able to can sealer with left hand. . Weakness in right arm(s). 14:00 Neuro: Level of Consciousness is awake, obeys commands, confused, Oriented to person. aa5 Respiratory: Airway is patent Respiratory effort is even, unlabored, Respiratory pattern is tachypnea. : Davila in place to gravity drainage. Derm: Skin is pink, warm \T\ dry. 15:00 Reassessment: Resting in bed with eyes closed, respirations even and unlabored, skin is aa5 pink/warm/dry. . Vital Signs: 09:52 BP 145 / 64; Pulse 112; Resp 22 S; Temp 97.6(O); Pulse Ox 97% on 2 lpm NC; aa5 10:50 BP 109 / 49; Pulse 107; Resp 28 S; Temp 96(R); Pulse Ox 96% on 2 lpm NC; Weight 31.75 aa5 kg (R); 12:14 BP 106 / 64; Pulse 123; Resp 27 S; Temp 94.6(C); Pulse Ox 97% on 2 lpm NC; aa5 13:00 BP 121 / 51; Pulse 114; Resp 24 S; Temp 95.4(C); Pulse Ox 96% on 2 lpm NC; aa5 13:45 BP 126 / 55; Pulse 120; Resp 22 S; Pulse Ox 95% on 2 lpm NC; aa5 13:45 BP 114 / 87; Pulse 113; Resp 22 S; Temp 95.9(C); Pulse Ox 96% on 2 lpm NC; aa5 14:30 BP 117 / 56; Pulse 118; Resp 23 S; Temp 96.0(C); Pulse Ox 96% on 2 lpm NC; aa5 15:00 BP 130 / 59; Pulse 120; Resp 22 S; Temp 96.5(C); Pulse Ox 95% on 2 lpm NC; aa5 NIH Stroke Scale Scores: 09:50 NIHSS Score: 4 aa5 ED Course: 09:49 Patient arrived in ED. aa5 09:49 Arm band placed on. aa5 09:49 Patient has correct armband on for positive identification. Placed in gown. Bed in low aa5 position. Call light in reach. Side rails up X2. 09:49 monitoring specialist on. Pulse ox on. NIBP on. aa5 09:51 Ruiz Casanova MD is Attending Physician. kdr 09:54 Triage completed. aa5 10:01 Jenn Knutson, RN is Primary Nurse. aa5 10:11 CT Stroke Brain w/o Contrast In Process Unspecified. EDMS 10:16 Stroke CXR 1 View In Process Unspecified. EDMS 10:25 Inserted saline lock: 24 gauge in right upper arm, using aseptic technique. aa5 10:25 Initial lab(s) drawn, by ny, sent to lab. First set of blood cultures drawn by ny. aa5 10:33 Second set of blood cultures drawn by me. Inserted saline lock: 24 gauge in left upper aa5 arm, using aseptic technique. 11:32 Norm Huerta is Hospitalizing Provider. kdr 11:45 Davila cath removed intact, balloon deflated, The Davila catheter that was removed was jl7 noted to be inside the urethra approximately 1 inch. 11:50 Davila cath inserted, using sterile technique, 16 Fr., by ED staff, balloon inflated, to jl7 gravity drainage, other Temperature Davila used returned cloudy urine. Patient tolerated poorly. 12:00 Radiology exam delayed due to IV insertion attempt and/or patient not having vm2 appropriate IV at this time. 12:30 Inserted saline lock: 18 gauge in left upper arm, using aseptic technique. ,using aa5 aseptic technique. US guided IV inserted by Dimas Vergara NP. 12:30 Repeat lactate draw and sent to lab. aa5 12:51 CT Chest For PE Angio In Process Unspecified. EDMS 12:59 Emmanuel Hays MD is Hospitalizing Provider. kdr 15:10 No provider procedures requiring assistance completed. Patient admitted, IV remains in aa5 place. Administered Medications: 10:50 Drug: NS 0.9% (30 ml/kg) 30 ml/kg Route: IV; Rate: bolus; Site: left upper arm; aa5 12:44 Follow up: IV Status: Completed infusion; IV Intake: 1000ml ; given 1000ml per aa5 10:51 Drug: Clindamycin 900 mg Route: IVPB; Infused Over: 30 mins; Site: left upper arm; aa5 11:21 Follow up: Response: No adverse reaction; IV Status: Completed infusion aa5 11:40 Drug: Cipro 400 mg Volume: 200 ml; Route: IVPB; Infused Over: 60 mins; Site: right aa5 upper arm; 12:40 Follow up: Response: No adverse reaction; IV Status: Completed infusion aa5 12:10 Drug: Potassium Chloride 20 mEq Route: IV; Rate: calculated rate; Site: left upper arm; aa5 15:00 Follow up: IV Status: Completed infusion aa5 12:10 Drug: K-Lyte Effervescent Tablet 50 mEq Route: PO; aa5 15:00 Follow up: Response: No adverse reaction aa5 12:11 CANCELLED (not available per pharmacy ): Potassium Chloride 40 mEq PO once aa5 12:11 CANCELLED (not available per pharmacy): Potassium Chloride 40 mEq PO once aa5 13:37 CANCELLED (Physician Discretion): NS 0.9% 1000 ml IV at 1000 ml once aa5 13:38 Drug: NS 0.9% 1000 ml Route: IV; Rate: 1000 ml; Site: left upper arm; aa5 15:00 Follow up: IV Status: Completed infusion; IV Intake: 1000ml aa5 Point of Care Testing: Blood Glucose: 10:27 Blood Glucose: 177 mg/dL; aa5 Ranges: Intake: 12:44 IV: 1000ml; Total: 1000ml. aa5 15:00 IV: 1000ml; Total: 2000ml. aa5 Output: 10:30 Urine: 200ml (Davila); Total: 200ml. aa5 15:00 Urine: 35ml (Davila); Total: 235ml. aa5 Outcome: 11:35 Decision to Hospitalize by Provider. kdr 15:10 Admitted to Tele accompanied by nurse, accompanied by tech, via stretcher, room 228, aa5 with oxygen, on monitor, with chart, Report called to VASQUEZ Jose 15:10 Condition: stable 15:10 Discharge instructions given to Pt's son [id number] by Dr. Hays. Instructed on the need for admit, Demonstrated understanding of instructions. 15:13 Patient left the ED. aa5 NIH Stroke Scale - NIH Stroke Score Date: 03/07/2019 Time: 09:50 Total Score = 4 1a. Level of Consciousness (LOC) - 0(Alert) 1b. Level of Consciousness (LOC) (Year \T\ Age) - 2(Neither) 1c. LOC Commands (Open \T\ Closes Eyes/[employer] Programmer) - 0(Both) 2. Best Gaze (Lateral Gaze Paresis) - 0(Normal) 3. Visual Field Loss - 0(No visual loss) 4. Facial Palsy - 0(Normal) 5a. Left Arm: Motor (10-second hold) - 0(No drift) 5b. Right Arm: Motor (10-second hold) - 2(Drift, some effort against gravity) 6a. Left Leg: Motor (5-second hold - always test supine) - 9(Amputation, joint fusion) - Notes: L AKA 6b. Right Leg: Motor (5-second hold - always test supine) - 9(Amputation, joint fusion) - Notes: R AKA 7. Limb Ataxia (finger/nose \T\ heel/fenton - test with eyes open) - 9(Amputation, joint fusion) - Notes: vinayak AKA 8. Sensory Loss (pinprick arms/legs/face) - 0(Normal) 9. Best Language: Aphasia (description/naming/reading) - 0(No aphasia) 10. Dysarthria (speech clarity - read or repeat words) - 0(Normal) 11. Extinction and Inattention (visual/tactile/auditory/spatial/personal) - 0(No abnormality) Initials: aa5 Signatures: Dispatcher [employer] EDMS Ruiz Casanova MD MD [facility] Jenn Knutson RN RN aa5 Nathaniel Morton RN RN jl7 Carly Shell 2 Corrections: (The following items were deleted from the chart) 10:00 09:49 Initial Sepsis Screen: Does the patient meet any 2 criteria? RR > 20 per aa5 min. Does the patient have a suspected source of infection? Yes: Other: recent left AKA aa 12:14 12:11 31.75 kg Reported; 7 12:43 10:20 Reassessment: Pt back from radiology. . 12:43 10:00 Reassessment: Pt to radiology via stretcher. . aa 12:45 12:44 IV Status: Completed infusion; IV Intake: 1000ml aa5 12:45 12:45 IV Status: Completed infusion; IV Intake: 1000ml ; given 1000ml per aa5aa5 15:30 15:30 Patient left the ED. aa5 15:36 10:50 BP 109 / 49; Pulse 107bpm; Resp 28bpm; Spontaneous; Pulse Ox 96% RA; Temp aa5 96F Rectal; 31.75 kg Reported; 15:36 12:14 BP 106 / 64; Pulse 123bpm; Resp 27bpm; Spontaneous; Pulse Ox 97% RA; Temp aa5 94.6F Catheter; 15:56 09:50 Derm: Skin is pink, warm \T\ dry. aa5 aa5
--- NOTE | 2019-03-07 11:36 | EDPHYS ---
Physician Documentation [facility] Name: Virginia Savage Age: 68 yrs Sex: Female : 1950 Arrival Date: 03/07/2019 Time: 09:49 Bed 2 Private MD: ED Physician Ruiz Casanova HPI: 03/07 09:55 This 68 yrs old Unknown Female presents to ER via EMS with complaints of right arm kdr weakness. 09:55 The patient was noted at 08:45 AM to have weakness in the RUE. She can move her arm but kdr has little or no control over her right wrist or hand. Last known well was 6:00 PM yesterday. No "code stroke" will be called since the time of onset is unknown.. Onset: The symptoms/episode began/occurred at an unknown time. Severity of symptoms: At their worst the symptoms were moderate in the emergency department the symptoms are unchanged. It is unknown whether or not the patient has had similar symptoms in the past. It is unknown whether or not the patient has recently seen a physician. Historical: - Allergies: 09:50 Codeine; aa5 09:50 metformin; aa5 09:50 PENICILLINS; aa5 09:50 SHELLFISH; aa5 09:50 Sulfa (Sulfonamide Antibiotics); aa5 - Home Meds: 10:05 amlodipine 10 mg tab 1 tab once daily [Active]; atorvastatin 80 mg Oral tab once daily aa5 [Active]; Arginaid oral oral [Active]; Calcium Carbonate Oral [Active]; Flonase Nasal [Active]; gabapentin 300 mg oral cap [Active]; ipratropium-albuterol inhalation Inhl [Active]; metoprolol tartrate 25 mg Oral tab 2 times per day [Active]; megestrol 400 mg/10 mL (40 mg/mL) Oral susp [Active]; pantoprazole 40 mg Oral TbEC once daily [Active]; potassium chloride 20 mEq Oral TbER 2 tab once daily [Active]; Remeron 15 mg oral tab 0.5 tab at bedtime [Active]; tamsulosin 0.4 mg Oral cp24 1 cap once daily [Active]; tramadol 50 mg Oral tab every 6 hours [Active]; venlafaxine 75 mg Oral cp24 1 cap BID [Active]; Vitamin C Oral [Active]; zinc [Active]; - PMHx: 09:50 COPD; CVA; Depression; Diabetes Type 2; Hyperlipidemia; PVD; Retention of urine with aa5 davila placement; - Immunization history:: Adult Immunizations unknown. - Ebola Screening: : No symptoms or risks identified at this time. - Social history:: Smoking status: Patient uses tobacco products, 8 cigarettes a day (from previous visit). ROS: 09:55 Constitutional: The patient is a poor historian and unable to give a consistent and kdr reliable history. She appears in mild distress and is dyspneic. Her mental status is clouded. Initially, she was unable to give her name. Exam: 10:20 Constitutional: This is a well developed, well nourished patient who is awake, alert, kdr and in no acute distress. Vital Signs: 09:52 BP 145 / 64; Pulse 112; Resp 22 S; Temp 97.6(O); Pulse Ox 97% on 2 lpm NC; aa5 10:50 BP 109 / 49; Pulse 107; Resp 28 S; Temp 96(R); Pulse Ox 96% on 2 lpm NC; Weight 31.75 aa5 kg (R); 12:14 BP 106 / 64; Pulse 123; Resp 27 S; Temp 94.6(C); Pulse Ox 97% on 2 lpm NC; aa5 13:00 BP 121 / 51; Pulse 114; Resp 24 S; Temp 95.4(C); Pulse Ox 96% on 2 lpm NC; aa5 13:45 BP 126 / 55; Pulse 120; Resp 22 S; Pulse Ox 95% on 2 lpm NC; aa5 13:45 BP 114 / 87; Pulse 113; Resp 22 S; Temp 95.9(C); Pulse Ox 96% on 2 lpm NC; aa5 14:30 BP 117 / 56; Pulse 118; Resp 23 S; Temp 96.0(C); Pulse Ox 96% on 2 lpm NC; aa5 15:00 BP 130 / 59; Pulse 120; Resp 22 S; Temp 96.5(C); Pulse Ox 95% on 2 lpm NC; aa5 NIH Stroke Scale Scores: 09:50 NIHSS Score: 4 aa5 MDM: 11:35 Patient medically screened. kdr 11:36 Data reviewed: vital signs, nurses notes, lab test result(s), radiologic studies. kdr Counseling: I had a detailed discussion with the patient and/or guardian regarding: the historical points, exam findings, and any diagnostic results supporting the discharge/admit diagnosis, lab results, radiology results, the need for further work-up and treatment in the hospital. 03/07 09:55 Order name: Basic Metabolic Panel; Complete Time: 11:28 kdr 03/07 09:55 Order name: CBC with Diff kdr 03/07 09:55 Order name: Protime (+inr); Complete Time: 11:28 kdr 03/07 09:55 Order name: Ptt, Activated; Complete Time: 11: kdr 03/07 10:01 Order name: Blood Culture Adult (2) kdr 03/07 10:01 Order name: Ckmb; Complete Time: : kdr 03/07 10:01 Order name: CPK; Complete Time: 11: kdr 03/07 10:01 Order name: Lactate; Complete Time: 11: kdr 03/07 10:01 Order name: LFT's; Complete Time: 11: kdr 03/07 10:01 Order name: Lipase; Complete Time: 11: kdr 03/07 10:01 Order name: Procalcitonin; Complete Time: 15:39 kdr 03/07 10:01 Order name: Troponin (emerg Dept Use Only); Complete Time: 11:28 kdr 03/07 10:01 Order name: Urine Microscopic Only; Complete Time: 15:39 kdr 03/07 10:02 Order name: DD; Complete Time: 11:28 kdr 03/07 09:55 Order name: CT Stroke Brain w/o Contrast; Complete Time: 10:45 kdr 03/07 09:55 Order name: Stroke CXR 1 View; Complete Time: 10:45 kdr 03/07 10:37 Order name: Glucose, Ancillary Testing; Complete Time: 10:45 EDMS 03/07 11:03 Order name: Urine Dipstick--Ancillary (enter results); Complete Time: 11:28 ms 03/07 11:19 Order name: Wound Culture aa5 03/07 11:25 Order name: Manual Differential EDMS 03/07 11:29 Order name: CT Chest For PE Angio; Complete Time: 15:39 kdr 03/07 12:19 Order name: Urine Microscopic Only; Complete Time: 15:39 ms 03/07 12:23 Order name: Lactate: 2 hr repeat lactate; Complete Time: 15:39 aa5 03/07 12:33 Order name: Urine Culture [facility] 03/07 13:18 Order name: US Extremity Venous Unilateral Ltd aa5 03/07 09:55 Order name: EKG; Complete Time: 09:57 kdr 03/07 09:55 Order name: Accucheck; Complete Time: 10:39 kdr 03/07 09:55 Order name: Cardiac monitoring; Complete Time: 10:01 kdr 03/07 09:55 Order name: EKG - Nurse/Tech; Complete Time: 11:04 kdr 03/07 09:55 Order name: IV Saline Lock; Complete Time: 10:39 kdr 03/07 09:55 Order name: Labs collected and sent; Complete Time: 10:39 kdr 03/07 09:55 Order name: NPO; Complete Time: 10:01 kdr 03/07 09:55 Order name: O2 Per Protocol; Complete Time: 10:01 [facility] 03/07 09:55 Order name: O2 Sat Monitoring; Complete Time: 10:01 kdr 03/07 09:55 Order name: Stroke Swallow Screen; Complete Time: 12:12 [facility] 03/07 10:01 Order name: IV Saline Lock - Large Bore; Complete Time: 10:38 [facility] 03/07 10:01 Order name: Urine Dipstick-Ancillary (obtain specimen); Complete Time: 11:04 [facility] 03/07 12:14 Order name: Davila: VO received at 1130 and to d/c current davila. ; Complete Time: 12:14 [facility] 03/07 13:40 Order name: Social Service Consult [facility] Administered Medications: 10:50 Drug: NS 0.9% (30 ml/kg) 30 ml/kg Route: IV; Rate: bolus; Site: left upper arm; aa5 12:44 Follow up: IV Status: Completed infusion; IV Intake: 1000ml ; given 1000ml per MD aa5 10:51 Drug: Clindamycin 900 mg Route: IVPB; Infused Over: 30 mins; Site: left upper arm; aa5 11:21 Follow up: Response: No adverse reaction; IV Status: Completed infusion aa5 11:40 Drug: Cipro 400 mg Volume: 200 ml; Route: IVPB; Infused Over: 60 mins; Site: right aa5 upper arm; 12:40 Follow up: Response: No adverse reaction; IV Status: Completed infusion aa5 12:10 Drug: Potassium Chloride 20 mEq Route: IV; Rate: calculated rate; Site: left upper arm; aa5 15:00 Follow up: IV Status: Completed infusion aa5 12:10 Drug: K-Lyte Effervescent Tablet 50 mEq Route: PO; aa5 15:00 Follow up: Response: No adverse reaction aa5 12:11 CANCELLED (not available per pharmacy ): Potassium Chloride 40 mEq PO once aa5 12:11 CANCELLED (not available per pharmacy): Potassium Chloride 40 mEq PO once aa5 13:37 CANCELLED (Physician Discretion): NS 0.9% 1000 ml IV at 1000 ml once aa5 13:38 Drug: NS 0.9% 1000 ml Route: IV; Rate: 1000 ml; Site: left upper arm; aa5 15:00 Follow up: IV Status: Completed infusion; IV Intake: 1000ml aa5 Point of Care Testing: Blood Glucose: 10:27 Blood Glucose: 177 mg/dL; aa5 Ranges: Critical Glucose Levels:Adult <50 mg/dl or >400 mg/dl <40 mg/dl or >180 mg/dl Disposition: 03/07/19 11:35 Hospitalization ordered by Emmanuel Hays for Inpatient Admission. Preliminary diagnosis are Sepsis, unspecified organism, Right upper extremity weakness, Hypokalemia. - Bed requested for Telemetry/MedSurg (Inpatient). - Status is Inpatient Admission. aa5 - Condition is Fair. - Problem is new. - Symptoms are unchanged. UTI on Admission? No NIH Stroke Scale - NIH Stroke Score Date: 03/07/2019 Time: 09:50 Total Score = 4 1a. Level of Consciousness (LOC) - 0(Alert) 1b. Level of Consciousness (LOC) (Year \\T\\ Age) - 2(Neither) 1c. LOC Commands (Open \\T\\ Closes Eyes/Production Truck Driver) - 0(Both) 2. Best Gaze (Lateral Gaze Paresis) - 0(Normal) 3. Visual Field Loss - 0(No visual loss) 4. Facial Palsy - 0(Normal) 5a. Left Arm: Motor (10-second hold) - 0(No drift) 5b. Right Arm: Motor (10-second hold) - 2(Drift, some effort against gravity) 6a. Left Leg: Motor (5-second hold - always test supine) - 9(Amputation, joint fusion) - Notes: L AKA 6b. Right Leg: Motor (5-second hold - always test supine) - 9(Amputation, joint fusion) - Notes: R AKA 7. Limb Ataxia (finger/nose \\T\\ heel/fenton - test with eyes open) - 9(Amputation, joint fusion) - Notes: vinayak AKA 8. Sensory Loss (pinprick arms/legs/face) - 0(Normal) 9. Best Language: Aphasia (description/naming/reading) - 0(No aphasia) 10. Dysarthria (speech clarity - read or repeat words) - 0(Normal) 11. Extinction and Inattention (visual/tactile/auditory/spatial/personal) - 0(No abnormality) Initials: aa5 Signatures: Dispatcher [employer] EDMS Ruiz Casanova MD MD kdr Jenn Knutson RN RN aa5 Delroy Carmichael RN RN ja1 Corrections: (The following items were deleted from the chart) 12:11 11:35 Potassium Chloride 40 mEq PO once ordered. kdr aa5 12:11 11:36 Potassium Chloride Liquid 40 mEq PO once ordered. [facility] aa5 12:33 11:37 Urine Culture ordered. [facility] EDMS 12:59 11:35 Hospitalization Ordered by Norm Huerta for Inpatient Admission. kdr Preliminary diagnosis is Sepsis, unspecified organism; Right upper extremity weakness; Hypokalemia. Bed requested for Telemetry/MedSurg (Inpatient). Status is Inpatient Admission. Condition is Fair. Problem is new. Symptoms are unchanged. UTI on Admission? No. kdr 13:37 13:36 NS 0.9% 1000 ml IV at 1000 ml once ordered. aa5 aa5 14:29 12:59 03/07/2019 11:35 Hospitalization Ordered by Emmanuel Hays MD for Inpatient ja1 Admission. Preliminary diagnosis is Sepsis, unspecified organism; Right upper extremity weakness; Hypokalemia. Bed requested for Telemetry/MedSurg (Inpatient). Status is Inpatient Admission. Condition is Fair. Problem is new. Symptoms are unchanged. UTI on Admission? No. kdr 15:30 14:29 03/07/2019 11:35 Hospitalization Ordered by Emmanuel Hays MD for Inpatient aa5 Admission. Preliminary diagnosis is Sepsis, unspecified organism; Right upper extremity weakness; Hypokalemia. Bed requested for Telemetry/MedSurg (Inpatient). Status is Inpatient Admission. Condition is Fair. Problem is new. Symptoms are unchanged. UTI on Admission? No. ja1
[2019-03-07] MEDS ORDERED: KCL 20 MEQ/100 mL IVPB 20 MEQ/100 ML BAG IV ONE (11:55)
[2019-03-07] MEDS ORDERED: POTASSIUM 25 MEQ EFFERV TAB ONE (11:58)
[2019-03-07 12:43] LABS: Urine Bacteria 20-50 /HPF (<20); Urine Culture Reflex Order NOT NEEDED; Urine Mucus LIGHT /HPF (NONE SEEN); Urine RBC 20-50 /HPF (NONE SEEN)
--- NOTE | 2019-03-07 13:02 | RAD REPORT ---
EXAM DESCRIPTION: CT - Chest For Pe Angio - 03/07/2019 12:50 pm CLINICAL HISTORY: Chest pain. SOB COMPARISON: No comparisons TECHNIQUE: CT angiogram of the pulmonary arteries was performed with MIP. All CT scans are performed using dose optimization technique as appropriate and may include automated exposure control or mA/KV adjustment according to patient size. FINDINGS: Multiple filling defects are seen in the left lower lobe pulmonary arterial segmental bran ches compatible with pulmonary embolism. No RV strain pattern. Moderate areas of mural thrombus and irregular atherosclerotic plaque seen the aorta. Irregular solid mass is seen right apex measuring 4.0 x 3.7 cm. Advanced COPD is present. Irregular c avitary lesion also seen in the right mid lung 2.0 x 1.4 cm. Moderate bilateral pleural effusions, larger on the left. No evidence of a displaced fracture. IMPRESSION: Segmental left lower lobe branch pulmonary emboli. Irregular 4 cm mass in the right apex likely neoplastic. COPD with bilateral pleural effusions, larger on the left
--- NOTE | 2019-03-07 13:46 | P.PN ---
Date of Service: 03/07/19 Called to evaluate patient for possible admission. Evaluated patient, spoke with ER Dr. Casanova, surgeon systems integration advisor Dr. Menezes and son Rene. Patient is currently septic now found to have right hand weakness, AMS, hypothermia, lung mass and now PE on CT scan. Spoke at length with son who is the MPOA. I explained to him that patient is very seriously ill in critical condition and due to her comorbidities she is unlikely to survive. She has a very poor prognosis. Son wants to keep patient comfortable and wants to initiate hospice care. He stated that she has been through a lot this year including 2 AKAs and that the patient would not want to suffer like this. Full consult note to follow.
[2019-03-07] MEDS ORDERED: ENOXAPARIN 30 MG/0.3 ML SQ SCH (14:00)
[2019-03-07] MEDS ORDERED: FENTANYL CITR 100 MCG/2 ML IV PRN (15:35)
[2019-03-07] MEDS ORDERED: LORazepam 2 MG/ML VIAL IV PRN (15:35)
[2019-03-07 15:51] VITALS: BP 117/56; TEMP 96; O2SAT 96
--- NOTE | 2019-03-07 19:36 | HP ---
Date of Admission: 03/07/2019 Chief Complaint: Sepsis, weakness in the right upper extremity. Code Status: Do not resuscitate. Son is the medical power of civil rights attorney. Patient also has out of hospital DNR. Her wishes since 2018 mckinney s been to be do not resuscitate. Son, medical power of civil rights attorney wants to continue do not resuscitate status. History Of Present Illness: Patient is a 68-year-old female with multiple chronic medical conditions including COPD, history of CVA, severe peripheral vascular disease, depression, diabetes, hyperlipid emia, recent above-knee amputation of the left extremity at [facility] in January when she was transferred on 02/07/2019 for a higher level of care from this facility. Patient has been at [facility] and was sent to the ER today for weakness of her right upper extremity specifica lly her hand with weak internal medicine physician assistant. Patient comes in with tachycardia, tachypnea, has not been eating or dr inking well, refusing her food. Patient was found to be septic, had a white count of over 20,000, el evated D-dimer. Procalcitonin was high lactate was 4.1. Her chest x-ray showed a right apical mass which apparently according the son was present previously at [facility]. CT scan angio PE protocol w as done, which showed a pulmonary embolism. Head CT scan was negative. Patient was hypothermic. Sh e was started on Carmen Hugger. She was given IV antibiotics and referred for admission. Initially, I spoke with Dr. Menezes, general surgeon regarding patient's condition. He recommended higher level of care. I spoke to the son regarding the patient's overall condition and poor prognosis. He wishe d to continue with care and comfort measures and hospice care for the patient. He understands that t he patient will likely succumb to her illness without active current treatment. Patient was admitted for hospice care. Past Medical History: COPD, history of CVA, major depressive disorder, diabetes mellitus type 2, hyp erlipidemia, peripheral vascular disease, history of urinary retention, chronic indwelling Martinez cath eter. Past Surgical History: Patient has bilateral AKA, most recent left AKA done less than a month ago. Allergies: TO CODEINE, PENICILLIN AND SULFA. Medications: List reviewed. Social History: Patient is a resident of nursing facility. Smokes about 8 cigarettes per day. No i llicit drug use or alcohol use. Son is the medical power of civil rights attorney. Family History: Noncontributory in this female. Review of Systems: Ten-point system reviewed, negative except as per HPI. Physical Examination: Vital Signs: Temperature 97.6, heart rate 112, respirations 22, blood pressure 145/64, O2 97% on 2 L via nasal cannula. General: Awake, alert, but confused, ill-appearing, cachectic, older than stated age female in moder [id number] distress. HEENT: Normocephalic, atraumatic. PERRLA. EOMI. Dry mucous membranes. Oropharynx is clear. Poor dentition. Conjunctivae are anicteric. Neck: Supple. No JVD trachea midline. CV: S1, S2. Sinus tachycardia. Peripheral pulses, radial pulses are weak. Respiratory: Diminished breath sounds. No wheezing. Patient is tachypneic with use of accessory mu scles. Gastrointestinal: Abdomen is soft, nontender, nondistended. Positive bowel sounds. Extremities: No clubbing or cyanosis. Patient has bilateral AKA. Neuro: The patient has weakness of her right hand with internal medicine physician assistant strength. Also has swelling of the righ t hand with multiple abrasions. Cranial nerves 2 through 12 intact grossly. Speech is normal. Cindy ent is very hard of hearing. Skin: Incision site on the left AKA stump, damaso are in place. Patient has necrosis around the ed ges of the incision. Has some pustular drainage. Right hand has swollen with some mild erythema as well as abrasions. Psych: Unable to be obtained. Laboratory Data: Lactate 4.1, repeat lactate is 4.6. Procalcitonin 1.03. Sodium 144, potassium 2.6 , chloride 106, CO2 of 11, BUN 22, creatinine 1.26, glucose 179, calcium 8, alkaline phosphatase 192. Troponin 0.04. Albumin 1.5. WBC 26.7, H and H 10.7 and 34.1, platelets 356, neutrophils 95%. INR 1.2. D-dimer is 2644. UA positive nitrite, 3+ leukocyte esterase, WBCs loaded, loaded bacteria. B lood cultures and wound cultures have been obtained. Imaging Studies: CT angio chest shows segmental left lower lobe branch pulmonary emboli, irregular 4 cm mass in the right apex, likely neoplastic, COPD with bilateral pleural effusions, larger on the l eft. Chest x-ray shows asymmetric bilateral pulmonary opacities present, probably represent pulmonar y edema or pneumonia. A 2 cm mass in the right apex noted likely representing a lung mass, malignanc y. CT scan of the brain personally reviewed shows areas of diminished density most notable in the ri ght cerebellar hemisphere measuring 2 cm that have the appearance of a subacute or chronic infarct. There is continued clinical concern for CVA. MR imaging would be recommended. Assessment And Plan: A 68-year-old female with 1.Sepsis secondary to left above-knee amputation wound. Patient is tachycardic tachypneic. Patient has elevated white blood cell count, elevated lactate. Patient was given 30 mL/kg bolus. We will r epeat bolus. Patient is hypothermic. Broad-spectrum IV antibiotics have been initiated. Cultures h ave been obtained. 2.Left above-knee amputation stump site infection. Postoperative wound cultures have been obtained. Continue antibiotics. 3.Subacute versus chronic infarct, right cerebellar hemisphere. Patient does have upper extremity h and weakness. 4.Acute cystitis with hematuria. 5.Left pulmonary embolism. 6.Hypokalemia. We will replace and monitor. 7.Acute metabolic encephalopathy, likely related to possible cerebrovascular accident versus sepsis and multiple source of infection. 8.Chronic obstructive pulmonary disease, chronic bronchitis. 9.Bilateral pleural effusions. 10.History of cerebrovascular accident. 11.Major depressive disorder. 12.Diabetes mellitus, type 2. Continue with sliding scale insulin. 13.Mixed hyperlipidemia. 14.Peripheral vascular disease. 15.Recent above-knee amputation now with postoperative wound infection. Plan: Admit patient, place as inpatient length of stay greater than 2 midnights. I spoke with the s on, the patient's medical power of civil rights attorney. He wishes to keep the patient care and comfort and DNR status. He understands that without use of aggressive measures including IV antibiotics, surgery, an d IV fluid resuscitation and possibly pressors, patient will likely succumb to her illness and . She is very gravely critically ill. She has multiple sources of infection. She is septic, possibly bacteremic. She has elevated lactate indicating acidosis. She has possibly acute CVA, is hypothermi c, tachycardic and tachypneic. Patient also has UTI and postoperative infection. She has now also d eveloped a left-sided pulmonary embolism. She was given therapeutic Lovenox dose in the ER. This is likely resultant from the right apical lung mass, which is likely neoplastic. Overall, her prognosi s is very poor. Patient likely will not survive this hospitalization. She has hours to days to live . I have informed the son to contact family and to visit with the patient as she may not survive. CARLOS Voice ID: [id number]
--- NOTE | 2019-03-08 08:10 | EKG ---
Test Date: 2019-03-07 Test Time: 11:10:37 Appliance Parts Counter Clerk: VITALIY MEASUREMENT RESULTS: Intervals: Rate: 127 FL: 128 QRSD: 66 QT: 400 QTc: 581 [place]: P: 88 FL: 128 QRS: 46 T: 81 INTERPRETIVE STATEMENTS: Sinus tachycardia with premature atrial complexes Anteroseptal infarct, age undetermined Abnormal ECG Compared to ECG 02/05/2019 18:18:19 Atrial premature complex(es) now present Sinus rhythm no longer present Fusion complex(es) no longer present Ventricular premature complex(es) no longer present Myocardial infarct finding still present Electronically Signed On 03-08-19 08:09:26 ORGANIZATIONAL EFFECTIVENESS CONSULTANT by Beltran Beth
== END 2019-03-07 17:07 | disposition hospice, inpatient (51) | DRG 871 ==
LOC: ER 09:41 → ERHOLD 14:05 → 2ND 15:04
PROVIDERS: ADMIT Family Medicine; ATTEND Family Medicine
DX: A41.9 Sepsis, unspecified organism (principal); I63.9 Cerebral infarction, unspecified; G93.41 Metabolic encephalopathy; I26.99 Other pulmonary embolism without acute cor pulmonale; T87.44 Infection of amputation stump, left lower extremity; N30.00 Acute cystitis without hematuria; J90 Pleural effusion, not elsewhere classified; G83.21 Monoplegia of upper limb affecting right dominant side; E78.2 Mixed hyperlipidemia; I73.9 Peripheral vascular disease, unspecified; E11.9 Type 2 diabetes mellitus without complications; F32.9 Major depressive disorder, single episode, unspecified; E87.6 Hypokalemia; Z66 Do not resuscitate
CPT/HCPCS: 36415; 51702; 70450; 71045; 71275; 80048; 80076; 81003; 81015; 82550; 82553; 82947; 83605; 83690; 84145; 84484; 85025; 85379; 85610; 85730; 87040; 87070; 87077; 87086; 87088; 87186; 87205; 93005; 96365; 96366; 96367; 96368; 99285; J0744; J7030; Q9967

== ENCOUNTER 2019-03-07 17:08 | Inpatient (IN) | payer OTHER ==
[2019-03-07 17:38] VITALS: BMI 21.7
[2019-03-07] MEDS ORDERED: ONDANSETRON 4 MG/2 ML VIAL IV PRN (18:25)
[2019-03-07] MEDS: HYDROMORPHONE HCL 2 MG/ML inj IV PRN (21:27)
[2019-03-08] MEDS: HYDROMORPHONE HCL 2 MG/ML inj IV PRN (09:42)
[2019-03-08] MEDS: LORazepam 2 MG/ML VIAL IV PRN ×2 (11:20→20:31)
--- NOTE | 2019-03-08 12:38 | P.PN ---
Date of Service: 03/08/19 Patient seen and examined. Family at bedside. Case discussed with helper chicken farm Patient continues to deteriorate. Has shallow breathing and is in a semi comatose state. A/P Sepsis Continue care and comfort measures. patient not stable for home hospice at this time. Will likely pass in hours to days
[2019-03-09] MEDS: HYDROMORPHONE HCL 2 MG/ML inj IV PRN ×3 (01:38→18:42)
[2019-03-09 08:35] VITALS: BP 109/64
--- NOTE | 2019-03-09 16:54 | P.PN ---
Date of Service: 03/09/19 Patient seen and examined. Family at bedside. Patient now comatose not responding. Patient is tachycardic spiking fevers. Continues to have shallow breathing. A/P Sepsis Continue care and comfort measures. patient not stable for home hospice at this time. Will likely pass in hours to days
[2019-03-09 20:39] VITALS: TEMP 100.2
[2019-03-09] MEDS: LORazepam 2 MG/ML VIAL IV PRN (21:14)
[2019-03-09 22:08] VITALS: O2SAT 91
[2019-03-10] MEDS: HYDROMORPHONE HCL 2 MG/ML inj IV PRN (07:34)
[2019-03-10] MEDS ORDERED: SCOPOLAMINE HYDROBROMIDE PATCH TD SCH (09:00)
--- NOTE | 2019-03-21 03:31 | DS ---
Date of Discharge: 03/10/2019 Admitting Diagnoses: 1.Sepsis. 2.Left above-knee amputation stump site infection. 3.Subacute versus chronic infarct in the right cerebellar hemisphere. 4.Acute cystitis with hematuria. 5.Left pulmonary embolism. 6.Hyperkalemia. 7.Acute metabolic encephalopathy. 8.Chronic obstructive pulmonary disease. 9.Bilateral pleural effusions. 10.History of cerebrovascular accident. 11.Major depressive disorder. 12.Diabetes mellitus, type 2. 13.Mixed hyperlipidemia. 14.Peripheral vascular disease. 15.Recent above-knee amputation with postoperative wound infection. Hospital Course: Please see HPI for details. Patient was a very ill, 68-year-old female with multip le chronic medical conditions including COPD, CVA, peripheral vascular disease, depression, diabetes, hyperlipidemia with multiple surgeries including recent above-knee amputation of the left lower extr emity in [facility] in January, comes in with sepsis. Upon admission, family wished to make the pat ient hospice, and care and comfort measures were initiated. She had a very poor outlook including ve ry grave prognosis even with active treatment. Son, who is a medical power of insurance defense attorney, did not wish to pursue any further invasive measures, did not wish to transfer patient back to [facility] for thi s new wound infection from surgery that took place at [facility] in January. Therefore, inpatient h ospice care was initiated. Patient declined rapidly she had uncontrolled pain and symptoms. She on 03/10/2019 under care and comfort measures. /AUDIE Voice ID: [id number] Report ID: [id number]
== END 2019-03-10 12:50 | disposition expired | DRG 871 ==
LOC: 2ND 17:08
PROVIDERS: ADMIT Family Medicine; ATTEND Family Medicine
DX: A41.9 Sepsis, unspecified organism (principal); I26.99 Other pulmonary embolism without acute cor pulmonale; G93.41 Metabolic encephalopathy; I63.9 Cerebral infarction, unspecified; T87.44 Infection of amputation stump, left lower extremity; N30.01 Acute cystitis with hematuria; E87.5 Hyperkalemia; E87.6 Hypokalemia; J44.9 Chronic obstructive pulmonary disease, unspecified; I73.9 Peripheral vascular disease, unspecified; E11.9 Type 2 diabetes mellitus without complications; E78.2 Mixed hyperlipidemia; F32.9 Major depressive disorder, single episode, unspecified; F17.210 Nicotine dependence, cigarettes, uncomplicated; Z89.612 Acquired absence of left leg above knee; Z86.73 Personal history of transient ischemic attack (TIA), and cerebral infarction without residual deficits
CPT/HCPCS: J1170